=== PATIENT | male | born 1975 | race Caucasian/White ===

== ENCOUNTER 2018-12-08 11:35 | Inpatient (IN) | payer OTHER ==
[~2018-12-08] VITALS: Ht 180.3 cm; Wt 99.8 kg
== END 2018-12-10 09:22 | disposition home or self-care (01) | DRG 661 ==
LOC: CIR.AMB 11:35 → SURG 18:08
PROVIDERS: ADMIT Urology
PROC: 0TC34ZZ Extirpation of Matter from Right Kidney Pelvis, Percutaneous Endoscopic Approach (ICD-10-PCS; principal; 2018-12-08 11:30)
DX: N20.0 Calculus of kidney (principal); I10 Essential (primary) hypertension